=== PATIENT | male | born 1985 | race Caucasian/White ===

== ENCOUNTER 2017-06-23 21:43 | Emergency (ER) | payer OTHER, MEDICAID ==
[~2017-06-23] VITALS: Ht 172.7 cm; Wt 83.9 kg
[~2017-06-23 21:43] MED LIST: ACETAMINOPHEN-1 EAC1 PO; AZITHROMYCIN 2250 MG PO; BACTRIM DS TAB1 EACH PO; CELEXA20 MG; DOXYCYCLINE 10100 MG PO; HYDROCODONE-AP1 EAC6 PO; KEFLEX500 MG PO; MEDROLDOSEPACK PO; MOBIC7.5 M1 PO; MOBIC7.5 MG PO; NOHOMEMEDICATIONS; NORCO 5-325 TA1 EACH PO; PREDNISONE 20 M20 M1 PO; PROAIR HFA8.5 GM INH; TOBREX5 ML OP; ULTRAM 50MG TAB50 MG PO; VENTOLIN HFA 1818 GM INH; ZIAGEN 300 MG300 MG; ZPAK PO
[2017-06-23] MEDS ORDERED: CLONAZEPAM 1 MG1 M1 (21:48)
[2017-06-23] MEDS ORDERED: NEURONTIN 300300 M1 (21:48)
[2017-06-23] MEDS ORDERED: FLEXERIL PO (21:48)
[2017-06-23] MEDS ORDERED: CIPROFLOXIN HC2.5 M1 OPHTHALMIC (22:55)
[2017-06-23 23:02] VITALS: BP 143/80
== END 2017-06-23 23:02 | disposition home or self-care (01) ==
LOC: M.ERS 21:43
DX: T26.91XA Corrosion of right eye and adnexa, part unspecified, initial encounter (principal); H57.11 Ocular pain, right eye; F31.9 Bipolar disorder, unspecified; Z88.5 Allergy status to narcotic agent; Y93.89 Activity, other specified; Y92.89 Other specified places as the place of occurrence of the external cause

== ENCOUNTER 2017-12-30 21:29 | Emergency (ER) | payer OTHER, MEDICAID ==
[~2017-12-30] VITALS: Ht 172.7 cm; Wt 84.4 kg
[~2017-12-30 21:29] MED LIST changes: +CIPROFLOXIN HC2.5 M1 OPHTHALMIC; +CLONAZEPAM 1 MG1 M1; +FLEXERIL PO; +NEURONTIN 300300 M1
[2017-12-30] MEDS ORDERED: NAPROSYN500 MG PO (21:37)
[2017-12-30] MEDS ORDERED: PRAZOSIN 1 MG CA1 M1 PO (21:38)
[2017-12-30] MEDS ORDERED: LATUDA20 MG PO (21:38)
[2017-12-30 22:08] LABS: HEMATOCRIT 44.3 % (42.0-52.0); HEMOGLOBIN 15.1 gm/dL (14.0-18.0); MCH 30.7 pg (26.0-34.0); MCHC 34.2 g/dL (28.0-37.0); MCV 89.7 fL (80.0-100.0); MPV 9.9 fl. (7.2-11.1); RBC 4.94 mil/uL (4.50-6.00); RDW-CV 14.5 % (10.5-14.5); WBC 10.5 thou/uL (4.0-11.0)
[2017-12-30 22:11] LABS: CALCIUM 8.8 mg/dL (8.5-10.1); CREATININE 1.1 mg/dL (0.6-1.3); POTASSIUM 3.4 mmol/L (3.5-5.1)
[2017-12-30 23:46] VITALS: BP 138/89
[2017-12-31] MEDS ORDERED: AMOXICILLIN 50500 M1 PO (23:01)
[2017-12-31] MEDS ORDERED: FLEXERIL PO (23:01)
== END 2017-12-30 23:48 | disposition still patient (30) ==
LOC: M.ERS 21:29 → M.GI 21:29
PROVIDERS: Personal Emergency Response Attendant
DX: T17.228A Food in pharynx causing other injury, initial encounter (principal); F31.9 Bipolar disorder, unspecified; F17.210 Nicotine dependence, cigarettes, uncomplicated; Z88.6 Allergy status to analgesic agent; X58.XXXA Exposure to other specified factors, initial encounter; Y93.89 Activity, other specified; Y92.89 Other specified places as the place of occurrence of the external cause; Y99.8 Other external cause status

== ENCOUNTER 2017-12-31 21:54 | Emergency (ER) | payer OTHER, MEDICAID ==
[~2017-12-31] VITALS: Ht 172.7 cm; Wt 84.4 kg
[~2017-12-31 21:54] MED LIST changes: +LATUDA20 MG PO; +NAPROSYN500 MG PO; +PRAZOSIN 1 MG CA1 M1 PO
[2017-12-31] MEDS ORDERED: AMOXICILLIN 50500 M1 PO (23:01)
[2017-12-31] MEDS ORDERED: FLEXERIL PO (23:01)
[2017-12-31 23:19] VITALS: BP 154/85
== END 2017-12-31 23:19 | disposition home or self-care (01) ==
LOC: M.ERS 21:54
DX: J03.90 Acute tonsillitis, unspecified (principal); F31.9 Bipolar disorder, unspecified; F17.210 Nicotine dependence, cigarettes, uncomplicated; Z88.8 Allergy status to other drugs, medicaments and biological substances